=== PATIENT | female | born 1995 | race Caucasian/White ===

== ENCOUNTER 2022-05-09 14:11 | Observation (INO) | payer BC ==
[~2022-05-09] VITALS: Ht 170.2 cm; Wt 80.3 kg
--- NOTE | 2022-05-09 18:45 | NUR ---
both nares swabbed for covid-19 without complication.
--- NOTE | 2022-05-10 12:40 | PR ---
[facility] [address] [facility] [place], [place] [address] Signed AP Progress Notes Datetime Report Generated by CPAntonio: 05/10/2022 12:40 Chief Complaint: Fall Pt seen and examined. Doing well. Rare ctxs. +FM. No vaginal bleeding. Incidental asymptomatic Covid+. Desires d/c home PHYSICAL EXAM: [id number] General: Normal HEENT: Normal Neurologic: Normal Thyroid: Normal Cardiovascular: Normal Respiratory: Normal Back: Normal Abdomen: Normal Genitourinary Exam: Not Done Extremities: Normal Impression: IUP @ 34w5d Fall - contractions; no evidence of abruption Shoulder pain Covid in - asymptomatic Plan: Discharge home at 24 hr wil F/U urgent care if continued shoulder pain once quarantine completed Monitor movement and for any vaginal bleeding FU in office next week VITAL SIGNS: [id number] Vital Signs: Reviewed; Within Normal Limits EXAM: [id number] Contraction Comments: Irregular MEMBRANES: [id number] FETUS A: [id number] FHR Baseline: 130 Variability: Moderate 6-25bpm Accelerations: 15X15 Deceleration: None FHR Category: Category I FHR Comments: No evidence of metabolic acidosis FETUS B: [id number] PROGRESS NOTES: [id number] Signing Physician: Emilio Parnell DO *Electronically Signed* 05/10/22 1240 EMILIO PARNELL DO PATIENT NAME: LEEANN FINE PROGRESS NOTE DATE OF : 95 PHYSICIAN: EMILIO PARNELL DO RPT #: [id number] REPORT IS CONFIDENTIAL AND NOT TO BE RELEASED WITHOUT AUTHORIZATION [facility] [address] [place] [address] [place] [address] Signed Copies: ~ *Electronically Signed* 05/10/22 1240 EMILIO PARNELL DO PATIENT NAME: LEEANN FINE [place] PROGRESS NOTE DATE OF : 95 PHYSICIAN: EMILIO PARNELL DO RPT #: [id number] REPORT IS CONFIDENTIAL AND NOT TO BE RELEASED WITHOUT AUTHORIZATION
== END 2022-05-10 14:00 | disposition home or self-care (01) ==
LOC: FBCO 14:11 → FBC 18:41
PROVIDERS: ADMIT Obstetrics & Gynecology; ATTEND Obstetrics & Gynecology
DX: O47.03 False labor before 37 completed weeks of gestation, third trimester (principal); O26.893 Other specified pregnancy related conditions, third trimester; M25.511 Pain in right shoulder; U07.1 COVID-19; Z91.81 History of falling; Z3A.34 34 weeks gestation of pregnancy
CPT/HCPCS: 59025; A9270; C9803; G0463; U0003

== ENCOUNTER 2022-06-10 05:35 | Inpatient (IN) | payer BC ==
[~2022-06-10] VITALS: Ht 170.2 cm; Wt 84.8 kg
--- NOTE | ~2022-06-10 | OR ---
[facility] [address] [place] [id number] [place] DATE OF OPERATION: 06/10/2022 SURGEON: Emilio Parnell DO PREOPERATIVE DIAGNOSES: 1. Term . 2. Breech presentation. POSTOPERATIVE DIAGNOSES: 1. Term . 2. Breech presentation. PROCEDURE PERFORMED: Primary low transverse delivery. ANESTHESIA: Spinal followed by TAP block postoperatively. CLINICAL CARE LEADER: Leanna Decker DO. ESTIMATED BLOOD LOSS: 500 mL. COMPLICATIONS: None. DRAINS: Thrasher to gravity. FINDINGS: Delivery of viable male , 8 pounds 3 ounces, with Apgars of 9 and 9, delivered in the gallo breech presentation by primary low-transverse delivery. No nuchal cord and clear amniotic fluid noted. Normal uterus, tubes, ovaries, and placenta. Hemostasis at the end of procedure. INDICATIONS: Ms. Shirlene Frost is a very pleasant 26-year-old G1, P0, with IUP at 39 weeks and 1 day gestation, who presented for elective induction of labor. She was 3.5 cm and artificial rupture of membranes was performed. The patient quickly progressed to 7 cm and patient PATIENT NAME: LEEANN FINE OPERATIVE REPORT DATE OF : 95 REPORT #: [id number] PHYSICIAN: EMILIO PARNELL DO PCP: NO PRIMARY CARE PHYSICIAN REPORT IS CONFIDENTIAL AND NOT TO BE RELEASED WITHOUT AUTHORIZATION [address] [place], [place] [address] Draft requested an epidural. Anesthesia came and evaluated the patient and she was then 9 cm and intrathecal was placed. Cervical exam was then performed that demonstrated gallo breech presentation. This was confirmed by bedside ultrasound. The patient was consented for primary low transverse delivery. Risks, benefits, and alternatives were discussed and all questions were answered to the best of my ability and the patient's apparent satisfaction. DESCRIPTION OF PROCEDURE: The patient was taken to the operating room, where a time-out was performed to confirm correct patient, correct procedure. Spinal anesthesia was adequately established. The patient was then prepped and draped in a supine position with a bump under the right hip. Thrasher catheter was inserted. The patient received Ancef 2 g plus azithromycin 500 mg IV preoperatively. The patient also received a dose of terbutaline subcu at time of decision to proceed with . ICPs were on and running and no preoperative heparin was indicated. Once spinal was noted to be adequate, a Pfannenstiel skin incision was made and carried down through the subcu into the fascia. The fascia was nicked in the midline and fascial incision was extended bilaterally using curved Barxton scissors. The fascia was grasped with Kochers, elevated, and the underlying rectus muscle dissected off using blunt and sharp dissection. Rectus muscles were divided in the midline. The peritoneum was entered sharply. Peritoneal incision was extended cephalad and caudad using sharp and blunt dissection. An Martinez self retractor was placed and the lower uterine segment identified. Hysterotomy was performed using a surgical scalpel and hysterotomy was extended bilaterally using blunt dissection. Clear amniotic fluid was noted. buttocks were noted in the gallo breech presentation and was delivered with the assistance of fundal pressure. The was delivered to the axilla, which was swept medially and delivered. Baby was then rotated 180 degrees and the now anterior arm was swept medially and delivered. Baby was then rotated into the occiput anterior position. The head was gently flexed and delivered without difficulty. The was vigorous and cried upon delivery. Cord was doubly clamped and cut, and the handed to the waiting pediatric team for further care. Cord was obtained for routine analysis. The placenta was then expressed gently, intact with a centrally inserted three-vessel cord. The uterine cavity was cleared of any remaining products of conception or clot. Hysterotomy was then repaired using 0 Monocryl in 2 layers, the first being a running locked layer and the second being a running nonlocked imbricating layer in the vertical manner. Small amount of oozing was made hemostatic with judicious use of Bovie electrocautery. The pelvis was irrigated, found to be hemostatic. Normal tubes and ovaries were noted. The peritoneum was then reapproximated using 2-0 Vicryl in a running nonlocked manner. The rectus was made hemostatic with Bovie electrocautery and then plicated loosely in the midline with 3 interrupted sutures of 0 Vicryl. Fascia was then reapproximated using 0 Vicryl in a running nonlocked manner. Subcu was irrigated and made hemostatic with judicious use of Bovie electrocautery. Subcu was then reapproximated using 3-0 Vicryl in a subcuticular running stitch. Skin was then PATIENT NAME: LEEANN FINE [place] OPERATIVE REPORT DATE OF : 95 REPORT #: [id number] PHYSICIAN: EMILIO PARNELL DO PCP: NO PRIMARY CARE PHYSICIAN REPORT IS CONFIDENTIAL AND NOT TO BE RELEASED WITHOUT AUTHORIZATION [address] [address] Draft reapproximated using surgical gus. The uterus was Crede'd for a scant amount of blood, and the patient remained in the operating room for TAP blocks. Sponge, needle, and instrument counts were correct x2 at the end of the procedure. Dr. Decker was present and participated in all portions of the procedure. DO POLLO Hung/TYE /[id number] Copies: ~ PATIENT NAME: LEEANN FINE [place] OPERATIVE REPORT DATE OF : 95 REPORT #: [id number] PHYSICIAN: EMILIO PARNELL DO PCP: NO PRIMARY CARE PHYSICIAN REPORT IS CONFIDENTIAL AND NOT TO BE RELEASED WITHOUT AUTHORIZATION
--- NOTE | 2022-06-10 11:52 | PR ---
[facility] [address] [place], [place] [address] Signed Progress Notes IP Datetime Report Generated by CPN: 06/10/2022 11:52 PROGRESS NOTES: [id number] Impression: Normal Progression of Labor; Reassuring Heart Rate Procedures: Sterile Vag Exam Plan: Deliver- Section Other Plans: Considering epidural Informed Consent Obtain: Section Delivery; Risks, Benefits and Alternatives Discussed VITAL SIGNS: [id number] Vital Signs: Reviewed; Within Normal Limits EXAM: [id number] Dilatation: 9.5 Effacement: 95 Station: -1 Contractions: Irregular MEMBRANES: [id number] ROM Note: AROM by Dr. Parnell Comments: Pt seen and examined. Comfortable w/ intrathecal. On exam, baby noted to be in breech presentation. Bedside US performed and breech presentation confirmed. Recommend proceeding to urgent primarly LTCS. Pt understands and agrees. Terbutaline, Ancef, and Azithromycin. Consents signed FETUS A: [id number] FHR Baseline: 120 Variability: Moderate 6-25bpm Accelerations: 15X15 Decelerations: None FHR Category: Category I Presentation: Vertex Comments on Fetus A: No evidence of metabolic acidosis FETUS B: [id number] Signing Physician: Emilio Parnell DO Copies: ~ *Electronically Signed* 06/10/22 1159 EMILIO PARNELL DO PATIENT NAME: MAGGY DURANLEEANN NIC PROGRESS NOTE DATE OF : 95 PHYSICIAN: EMILIO PARNELL DO RPT #: [id number] REPORT IS CONFIDENTIAL AND NOT TO BE RELEASED WITHOUT AUTHORIZATION
--- NOTE | 2022-06-10 13:03 | NUR ---
06/10/22 1303 Debora Watt 1255- PT ARRIVES TO [facility] ROOM #105. PT IS ALERT AND ORIENTED. REPORTING NO PAIN OR NAUSEA. RESP EVEN AND UNLABORD. OXYGEN SAT MID TO HIGH 90'S ON RA. LR WITH PITOCIN INFUSING TO 18G IV TO RIGHT FOREARM. PT'S AND SISTER AT THE BEDSIDE. 1203- PT RESTING IN BED. PT REPORTS NO PAIN OR NAUSEA.
--- NOTE | 2022-06-11 12:59 | PR ---
[facility] [address] [facility] [place], [place] [address] Signed PP Progress Notes Datetime Report Generated by CPN: 06/11/2022 12:59 SUBJECTIVE: [id number] Pain: Within Normal Limits Flatus: Yes Bowel Movement: No Vital Signs: [id number] Vital Signs: Reviewed; Within Normal Limits EXAM: Ongoing Cardiovascular: Normal Respiratory: Normal Abdomen/Uterus: Normal Lochia: Normal Vulva/Perineum: Not Done Breasts: Not Done CVA Tenderness: Normal Extremities: Normal Incision: Normal Progress: Normal Exam Comments: Fundus firm U-2. Incision healing well IMPRESSION/PLAN/PROCEDURES: [id number] Impression: Normal Progression Plan: Continue Present Management Progress Notes: Doing well. No concerns. Anticipate d/c home tomorrow or Monday Signing Physician: Emilio Parnell DO Copies: ~ *Electronically Signed* 06/11/22 1259 EMILIO PARNELL DO PATIENT NAME: LEEANN FINE [place] PROGRESS NOTE DATE OF : 95 PHYSICIAN: EMILIO PARNELL DO RPT #: [id number] REPORT IS CONFIDENTIAL AND NOT TO BE RELEASED WITHOUT AUTHORIZATION
--- NOTE | 2022-06-12 14:07 | PR ---
[facility] [address] [facility] [place], [place] [address] Signed PP Progress Notes Datetime Report Generated by CPN: 06/12/2022 14:07 SUBJECTIVE: [id number] Pain: Within Normal Limits Nausea/Vomiting: Denies Flatus: Yes Bowel Movement: Yes Vital Signs: [id number] Vital Signs: Reviewed; Within Normal Limits EXAM: Ongoing Cardiovascular: Normal Respiratory: Normal Abdomen/Uterus: Normal Lochia: Normal Vulva/Perineum: Not Done Breasts: Not Done CVA Tenderness: Normal Extremities: Normal Incision: Normal Progress: Normal Exam Comments: Fundus firm U-2 nontender. Incision healing well w/ modesta in place IMPRESSION/PLAN/PROCEDURES: [id number] Impression: Normal Progression Plan: Remove Modesta; Discharge Progress Notes: Pt seen and examined. Doing well. Ambulating, voiding, and tolerating full diet. Pain and lochia minimal. well. No fevers/chills or other concerns. Desires d/c home today. Reviewed d/c instructions and expectations. Planning OCPs for pp contraception Signing Physician: Emilio Parnell DO Copies: ~ *Electronically Signed* 06/12/22 0846 EMILIO PARNELL DO PATIENT NAME: LEEANN FINE [place] PROGRESS NOTE DATE OF : 95 PHYSICIAN: EMILIO PARNELL DO RPT #: [id number] REPORT IS CONFIDENTIAL AND NOT TO BE RELEASED WITHOUT AUTHORIZATION
== END 2022-06-12 14:39 | disposition home or self-care (01) | DRG 788 ==
LOC: FBC 05:35
PROVIDERS: ADMIT Obstetrics & Gynecology; ATTEND Obstetrics & Gynecology
PROC: 10D00Z1 Extraction of Products of Conception, Low, Open Approach (ICD-10-PCS; principal; 2022-06-10 12:07)
DX: O32.1XX0 Maternal care for breech presentation, not applicable or unspecified (principal); Z3A.39 39 weeks gestation of pregnancy; Z37.0 Single live birth; O76 Abnormality in fetal heart rate and rhythm complicating labor and delivery
CPT/HCPCS: 01961; 36415; 85025; 85027; 86850; 86900; 86901; A9270; J0456; J0690; J1100; J2274; J2405; J2590; J2795; J3105; J7121